=== PATIENT | male | born 1990 | race Caucasian/White ===

== ENCOUNTER 2016-12-03 19:53 | Emergency (ER) | payer MEDICAID ==
[2016-12-03 20:04] VITALS: BP 113/73
[2016-12-03] MEDS ORDERED: FAMOTIDINE 20 MG TABLET PO ONE (21:36)
[2016-12-03] MEDS ORDERED: DIPHENHYDRAMINE HCL 50 MG CAPSULE PO ONE (21:36)
[2016-12-03] MEDS ORDERED: DEXAMETHASONE SOD PHOS INJ 10 MG/1 ML VIAL IM ONE (21:36)
--- NOTE | 2016-12-03 21:42 | ER Document Report ---
ED Allergic Reaction - General Chief Complaint: Allergic Reaction Stated Complaint: POSSIBLE ALLERGIC REACTION Time Seen by Provider: 12/03/16 21:17 Mode of Arrival: Ambulatory Information source: Patient Notes: 26-year-old male presents to ED for allergic reaction to fire ant bites to bilateral feet about 1814. He states he had no known allergies. He states when he got bit while weed eating his yard he broke out in hives all over. He states he he took a shower after being bitten by the ants. He states he started breaking out in hives all over and he felt like his ears and throat were closing. He states he took 50 mg of Benadryl p.o. and his family states that he was not getting better so they brought him to the emergency room. By the time he got to the emergency room he states he started feeling better. He denies any shortness of breath or feeling like his throat was swollen. He is able to drink fluids. TRAVEL OUTSIDE OF THE [place] IN LAST 30 DAYS: No - HPI Onset: This evening Onset/Duration: Gradual, Better Quality of pain: No pain Severity: None Pain Level: Denies Other exposure: Ant bites Skin rash / itching: Diffuse, "Redness", "Hives" Swelling: Face, Throat, Hands, Feet Associated symptoms: None Similar symptoms previously: No Recently seen / treated by doctor: No - Related Data Allergies/Adverse Reactions: No Known Allergies Allergy (Unverified 12/03/16 20:00) Past Medical History - General Information source: Patient - Social History Smoking Status: Current Every Day Smoker - Pack per day Cigarette use (# per day): Yes - Pack per day Chew tobacco use (# tins/day): No Smoking Education Provided: Yes - Less than 2 minute Frequency of alcohol use: Social Drug Abuse: None Occupation: None Lives with: Spouse/Significant other, Friend Family History: DM, Malignancy. denies: Arthritis, CAD, COPD, CVA, Hyperlipidemia, Hypertension, Thyroid Disfunction Patient has suicidal ideation: No Patient has homicidal ideation: No - Medical History Medical History: Other - Past Medical History Cardiac Medical History: Reports: None Pulmonary Medical History: Reports: None EENT Medical History: Reports: None Neurological Medical History: Reports: None Endocrine Medical History: Reports: None Renal/ Medical History: Reports: None Malignancy Medical History: Reports None GI Medical History: Reports: None Musculoskeltal Medical History: Reports Hx Musculoskeletal Deformity - Bone spurs, Reports Hx Musculoskeletal Trauma - Skull fracture Skin Medical History: Reports None Psychiatric Medical History: Reports: None Traumatic Medical History: Reports: Hx Fractures - Skull fracture, Hx Traumatic Brain Injury Infectious Medical History: Reports: None Past Surgical History: Reports: Hx Orthopedic Surgery - Right leg due to bone spurs - Immunizations Immunizations up to date: Yes Review of Systems - Review of Systems Constitutional: No symptoms reported EENT: Difficulty swallowing - States he felt like his throat was swelling and he was having trouble swallowing earlier denies any symptoms now Cardiovascular: No symptoms reported Respiratory: No symptoms reported Gastrointestinal: No symptoms reported Genitourinary: No symptoms reported Male Genitourinary: No symptoms reported Musculoskeletal: No symptoms reported Skin: Other - Generalized hives with multiple ant bites to bilateral feet Hematologic/Lymphatic: No symptoms reported Neurological/Psychological: No symptoms reported -: Yes All other systems reviewed and negative Physical Exam - Vital signs Vitals: Temp Pulse Resp BP Pulse Ox 98.4 F 87 15 113/73 96 12/03/16 20:00 12/03/16 20:00 12/03/16 20:00 12/03/16 20:00 12/03/16 20:00 Interpretation: Normal - General General appearance: Appears well, Alert - HEENT Head: Normocephalic, Atraumatic Eyes: Normal Pupils: PERRL - Respiratory Respiratory status: No respiratory distress Chest status: Nontender Breath sounds: Normal Chest palpation: Normal - Cardiovascular Rhythm: Regular Heart sounds: Normal auscultation Murmur: No - Abdominal Inspection: Normal Distension: No distension Bowel sounds: Normal Tenderness: Nontender Organomegaly: No organomegaly - Back Back: Normal, Nontender - Extremities General upper extremity: Normal inspection, Nontender, Normal color, Normal ROM , Normal temperature General lower extremity: Normal inspection, Nontender, Normal color, Normal ROM , Normal temperature, Normal weight bearing. No: Mikhail's sign - Neurological Neuro grossly intact: Yes Cognition: Normal Orientation: AAOx4 Mark Coma Scale Eye Opening: Spontaneous Mark Coma Scale Verbal: Oriented [place] Coma Scale Motor: Obeys Commands [place] Coma Scale Total: 15 Speech: Normal Motor strength normal: LUE, RUE, LLE, RLE Sensory: Normal - Psychological Associated symptoms: Normal affect, Normal mood - Skin Skin Temperature: Warm Skin Moisture: Dry Skin Color: Normal Location of irregularity: Extremities - Hives Character of irregularity: Urticarial - Bilateral legs and feet and arms Irregularity with: Swelling - Bilateral feet Course - Re-evaluation Re-evalutation: 12/03/16 22:33 Patient was treated with Decadron 10 mg IM Benadryl 50 mg p.o. and Pepcid 20 mg p.o. Patient was discharged home with prescription for Pepcid and EpiPen. Patient given instructions to use the EpiPen only if he had feelings like his throat was swelling or any difficulty breathing after getting bit by ants or any other insect. Patient is to follow-up with primary doctor within the next 3 -4 days. Patient to return to the emergency room immediately if he has any return of difficulty swallowing or feeling like his throat is swelling. Patient states he was feeling much better when discharged. He was able to drink with no difficulty. - Vital Signs Vital signs: Temp Pulse Resp BP Pulse Ox 98.4 F 87 15 113/73 96 12/03/16 20:00 12/03/16 20:00 12/03/16 20:00 12/03/16 20:00 12/03/16 20:00 Discharge - Discharge Clinical Impression: allergic reaction to ant bites Condition: Stable Disposition: HOME, SELF-CARE Instructions: Family Physicians / Practices Additional Instructions: ACUTE ALLERGIC REACTION: Your symptoms are due to an allergic reaction. Allergy can cause hives, swelling of the hands, feet, and face, hoarseness, and difficulty swallowing or breathing. It may be due to exposure to medication, animal dander, foods, infection, or insect bites. Medication is a common cause, even when prior use of this same medication caused no problems. Acute treatment may include adrenalin and antihistamines. Usually, the specific allergic agent can't be identified unless repeated episodes occur. Home treatment includes the following: (1) Stop any suspicious medications. This will be discussed with you. (2) Oral antihistamines for the next four to five days. Example, diphenhydramine (Benadryl) every four hours. (3) You may also use cimetidine (Tagamet), ranitidine (Zantac), or famotidine ( Pepcid) every four hours if diphenhydramine is not controlling itching and hives. (4) Avoid aspirin until the hives completely disappear. (5) Avoid hot baths or showers until the hives are completely gone. Call the doctor if faintness, difficulty swallowing, tightness in the chest , or wheezing occurs. EPINEPHRINE: An injection of epinephrine (also called adrenalin) is used to treat allergic reactions, asthma, and some other medical conditions. It is a stimulant medication that consticts blood vessels, relaxes smooth muscles such as in the bronchioles of the lung, elevates blood pressure, and increases heart rate. It can temporarily make you feel very nervous and shakey, but it's affects last only a short time, about 15 to 30 minutes at most. STEROID MEDICATION INJECTION: You have been given an injection of medicine of the cortisone/steroid class. This medication is used to control inflammation or allergy. It is often continued as a pill for a short period of time, until the acute process subsides. There are usually no side effects from short-term use of cortisone-like medications. Some persons feel an increased sense of well-being and are not sleepy at bedtime. Long-term use of cortisone medications is best avoided, unless required for a severe condition. If your condition does not remit, or relapses after the course of corticosteroid medication, you should consult your physician. ACID-SUPPRESSING MEDICATION: You have a prescription for medicine which reduces the stomach's secretion of acid. Examples include Zantac, Tagament, and Pepcid. These drugs are often used to allow healing of ulcers or esophagitis. They may be needed to prevent recurrence of ulcers in some patients, or to prevent damage from acid reflux in the esophagus. Take all medication as prescribed, even after the pain is gone. Regular antacids may be added as needed if you have symptoms while taking this medicine. These medications sometimes are prescribed for allergic reactions because they have anti-histaminic effects and relieve the rash and itching of the reaction. There are usually no side effects from this medication. But, in rare cases and particularly in the elderly, serious problems can occur. Contact your doctor if there is fever, rash, hallucinations, confusion, or unusual bruising. Contact your doctor at once if you develop lightheadedness, black or bloody stool, or bloody vomitus. USE OF DIPHENHYDRAMINE: The use of diphenhydramine (Benadryl) has been recommended to control allergic symptoms. The 25 mg strength is available over- the-counter, as well as the elixir. This antihistamine is used for many symptoms. It's useful for itching, watering eyes and nose, allergic swelling, hives, and insect stings. The medication can be repeated four times daily. Age Elixir (12.5 mg/tsp) 25 mg pill 2-3 yr 1/2 tsp 4-8 yr 1 tsp 9-14 yr 2 tsp one tab adult 1-2 tabs Antihistamines may cause drowsiness, especially with the first dose. Do not operate machinery or drive while under the effects of the medication. Do not combine the medication with alcohol, or with any other medication without talking to your doctor. FOLLOW-UP CARE: If you have been referred to a physician for follow-up care, call the physician s office for an appointment as you were instructed or within the next two days. If you experience worsening or a significant change in your symptoms, notify the physician immediately or return to the Emergency Department at any time for re-evaluation. Prescriptions: Epinephrine [Epipen] 0.3 mg IJ ASDIR PRN #1 [id number].[email or web address] PRN Reason: Famotidine [Pepcid 20 mg Tablet] 20 mg PO BID #12 tablet Forms: Smoking Cessation Education Referrals: STEPHANI DREW DO [Primary Care Provider] - Follow up as needed
== END 2016-12-03 22:10 | disposition home or self-care (01) ==
LOC: ER 19:53
DX: T63.421A Toxic effect of venom of ants, accidental (unintentional), initial encounter (principal); L50.9 Urticaria, unspecified; R09.89 Other specified symptoms and signs involving the circulatory and respiratory systems; F17.210 Nicotine dependence, cigarettes, uncomplicated; Z71.6 Tobacco abuse counseling
CPT/HCPCS: 99283; 96372; J3490 ×2; J1100

== ENCOUNTER 2017-06-04 00:05 | Emergency (ER) | payer MEDICAID ==
[2017-06-04 00:22] VITALS: BP 135/86
[2017-06-04] MEDS ORDERED: IBUPROFEN 600 MG TABLET PO ONE (00:55)
[2017-06-04] MEDS ORDERED: PENICILLIN V POTASSIUM 500 MG TABLET PO ONE (00:55)
--- NOTE | 2017-06-04 01:01 | ER Document Report ---
ED Oral Problem - General Chief Complaint: Toothache Stated Complaint: TOOTHACHE Time Seen by Provider: 06/04/17 00:48 Mode of Arrival: Ambulatory Information source: Patient TRAVEL OUTSIDE OF THE [place] IN LAST 30 DAYS: No - HPI Patient complains to provider of: Toothache Onset: Other - 2 WEEKS Onset: Gradual Quality of pain: Achy Severity: Moderate Context: Fractured tooth Notes: Patient is here with complaints of right upper tooth pain. He states been present for the last few weeks. States that now he has pain when he pushes just under his right nostril. No swelling. No difficulty breathing or swallowing. No chest pain or shortness of breath. No abdominal pain. No nausea, vomiting, diarrhea. No rash. No injury. He states that he has not seen a dentist for this. Pain is worse with touching the area and eating, nothing seems to make it better. He denies any other complaints at this time. - Related Data Allergies/Adverse Reactions: No Known Allergies Allergy (Verified 06/04/17 00:17) Past Medical History - Social History Smoking Status: Unknown if Ever Smoked Family History: DM, Malignancy. denies: Arthritis, CAD, COPD, CVA, Hyperlipidemia, Hypertension, Thyroid Disfunction Patient has suicidal ideation: No Patient has homicidal ideation: No Renal/ Medical History: Denies: Hx Peritoneal Dialysis Musculoskeltal Medical History: Reports Hx Musculoskeletal Deformity - Bone spurs, Reports Hx Musculoskeletal Trauma - Skull fracture Traumatic Medical History: Reports: Hx Fractures - Skull fracture, Hx Traumatic Brain Injury Past Surgical History: Reports: Hx Orthopedic Surgery - Right leg due to bone spurs - Immunizations Immunizations up to date: Yes Review of Systems - Review of Systems -: Yes All other systems reviewed and negative Physical Exam - Vital signs Vitals: Temp Pulse Resp BP Pulse Ox 99.0 F 80 16 135/86 H 98 06/04/17 00:19 06/04/17 00:19 06/04/17 00:19 06/04/17 00:19 06/04/17 00:19 - Notes Notes: GENERAL: alert, cooperative, nontoxic, no distress. HEAD: normocephalic, atraumatic EYES: conjunctiva pink without discharge, no external redness or swelling. EARS: no external swelling, no external redness NOSE: atraumatic, no external swelling MOUTH/THROAT: mucous membranes moist and pink. Widespread dental decay. Fractured tooth noted to the right upper lateral incisor. No abscess or swelling noted to the gum. Mild tenderness to palpation just below the right nostril. There is no facial swelling or redness. No drainage. No trismus or drooling. NECK: soft, supple, full range of motion, no meningismus. CHEST: no distress, lungs clear and equal throughout. No wheezing, rales, rhonchi. CARDIAC: regular rate and rhythm, no murmur, normal capillary refill, normal pulses. BACK: full range of motion, no CVA tenderness. EXTREMITIES: full range of motion of all extremities. No redness, no swelling. NEURO: alert and oriented 3, no focal deficits, full range of motion of all extremities. PYSCH: appropriate mood, affect. Patient is cooperative. SKIN: pink, warm, dry, no rash. Course - Re-evaluation Re-evalutation: 06/04/17 00:58 Patient is nontoxic appearing with stable vitals. The patient is here with dental pain for the last few weeks that has progressively gotten worse. His pain just above her right lateral central incisor. There is no drainable abscess noted. No facial swelling. No trismus or drooling. Airway is patent. Patient likely has an early abscess forming. At this point there is nothing to drain. He will be discharged home with Deysi Spivey. He will be given a referral to dentist in the area. He is instructed to follow-up with a dentist at the next available appointment, sooner for increasing pain, high fever, swelling, difficulty breathing or swallowing, or for any further concerns. The patient is noted to have elevated blood pressure during today's emergency department visit. The patient was informed of this finding. The patient was instructed that this may be related to pre-hypertension and requires further evaluation with a primary care provider. The patient has no hypertensive symptoms at this time. The patient's emergency department workup and current diagnosis were explained to the patient and or family. Follow-up instructions were provided. Medications if prescribed were discussed. Instructions for when to return to the emergency department including specific worrisome symptoms were discussed with the patient and/or family. - Vital Signs Vital signs: Temp Pulse Resp BP Pulse Ox 99.0 F 80 16 135/86 H 98 06/04/17 00:19 06/04/17 00:19 06/04/17 00:19 06/04/17 00:19 06/04/17 00:19 Discharge - Discharge Clinical Impression: Pain, dental, Dental caries Condition: Stable Disposition: HOME, SELF-CARE Instructions: [facility], Penicillin V K ([facility]), Toothache ([facility]), Dentist Additional Instructions: Take medications as prescribed. Follow-up with a dentist at the next available appointment. Follow-up sooner for increasing pain, high fever, significant swelling, difficulty breathing or swallowing, or for any further concerns. Your blood pressure was elevated during today's visit. Have this rechecked with your doctor. Prescriptions: Diclofenac Sodium [Voltaren 50 Mg Tablet.] 50 mg PO BID #20 tablet. Penicillin V Potassium [Penicillin Vk 500 mg Tablet] 500 mg PO BID #20 tablet Forms: Elevated Blood Pressure, Smoking Cessation Education Referrals: BRIELLE CANCINO DPM [Primary Care Provider] - Follow up as needed
== END 2017-06-04 01:15 | disposition home or self-care (01) ==
LOC: ER 00:05
DX: K02.9 Dental caries, unspecified (principal); K08.89 Other specified disorders of teeth and supporting structures; R03.0 Elevated blood-pressure reading, without diagnosis of hypertension
CPT/HCPCS: 99282; J3490 ×2

== ENCOUNTER 2017-06-04 22:29 | Emergency (ER) | payer MEDICAID | END 2017-06-04 23:06 | disposition left against medical advice (07) | LOC: ER 22:29 | DX: Z53.21 Procedure and treatment not carried out due to patient leaving prior to being seen by health care provider (principal) ==

== ENCOUNTER 2018-06-25 16:33 | Emergency (ER) | payer SELFPAY ==
[2018-06-25 16:45] VITALS: BP 119/76
--- NOTE | 2018-06-25 16:45 | ER Document Report ---
HPI - HPI Time Seen by Provider: 06/25/18 16:44 Pain Level: 2 Notes: 28 yr male presents for dental pain that started 2 days ago after he broke his tooth. Denies any other area of injury. Pain is 8 out of 10, throbbing achy. Patient has a history of dental issues in the past has not been seen by a dentist. He decreased eating but drinking without issues. Patient smokes pack a day for the last 10 years. Denies fevers, chills, chest pain,palpitations, shortness of breath, dyspnea, nausea, vomiting, diarrhea, abdominal pain, hematuria,blurred vision, double vision, loss of vision, speech changes, LH, dizziness, syncope, headaches, wheezing, ST, URI, neck pain, weakness or rash Past Medical History - General Information source: Patient - Social History Smoking Status: Current Every Day Smoker Family History: DM, Malignancy. denies: Arthritis, CAD, COPD, CVA, Hyperlipidemia, Hypertension, Thyroid Disfunction Renal/ Medical History: Denies: Hx Peritoneal Dialysis Musculoskeletal Medical History: Reports Hx Musculoskeletal Deformity - Bone spurs, Reports Hx Musculoskeletal Trauma - Skull fracture Traumatic Medical History: Reports: Hx Fractures - Skull fracture, Hx Traumatic Brain Injury Past Surgical History: Reports: Hx Orthopedic Surgery - Right leg due to bone spurs - Immunizations Immunizations up to date: Yes Vertical Provider Document - CONSTITUTIONAL Agree With Documented VS: Yes Notes: PHYSICAL EXAMINATION: GENERAL: Well-appearing, well-nourished and in no acute distress. HEAD: Atraumatic, normocephalic. EYES: Pupils equal round and reactive to light, extraocular movements intact, sclera anicteric, conjunctiva are normal. ENT: Nares patent, oropharynx clear without exudates. Moist mucous membranes. #6 gingiva with swelling, erythema and induration. No drainage or open wounds. No fluctuance. No facial swelling. Poor oral dentition, right upper jaw with ext ensive dental caries, no definite swelling or effusion. NECK: Normal range of motion, supple without lymphadenopathy LUNGS: Breath sounds clear to auscultation bilaterally and equal. No wheezes rales or rhonchi. HEART: Regular rate and rhythm without murmurs ABDOMEN: Soft, nontender, nondistended abdomen. No guarding, no rebound. No masses appreciated. Musculoskeletal: Normal range of motion, no pitting or edema. No cyanosis. NEUROLOGICAL: Cranial nerves grossly intact. Normal speech, normal gait. Normal sensory, motor exams PSYCH: Normal mood, normal affect. SKIN: Warm, Dry, normal turgor, no rashes or lesions noted. - INFECTION CONTROL TRAVEL OUTSIDE OF THE [place] IN LAST 30 DAYS: No Course - Re-evaluation Re-evalutation: 06/25/18 17:06 Presentation is most consistent with likely an infected tooth. Airway is patent. Vitals within normal limits. Patient is able swallow without any difficulty. There is no significant facial swelling. No evidence of Duane angina, apical abscess, or airway obstruction. Patient will be started on antibiotics. I've instructed to follow-up with dentistry as earliest ability for definitive management. At this time will discharge with return precautions and follow-up recommendations. Verbal discharge instructions given a the bedside and opportunity for questions given. Medication warnings reviewed. Patient is in agreement with this plan and has verbalized understanding of return precautions and the need for primary care follow-up in the next 24-72 hours. - Vital Signs Vital signs: Temp Pulse Resp BP Pulse Ox 98.2 F 73 18 119/76 97 06/25/18 16:41 06/25/18 16:41 06/25/18 16:41 06/25/18 16:41 06/25/18 16:41 Discharge - Discharge Clinical Impression: Dental caries Condition: Stable Instructions: Toothache (REPLACED BY [facility]), Clindamycin (REPLACED BY [facility]), [facility], Dentist Additional Instructions: Dental Infection or Abscess You have an infection, perhaps an abscess (pus formation) of the gum around one of your teeth, which is probably decayed. If there is an abscess, it may drain on its own or it may need to be opened or lanced. Severe swelling or drainage around a tooth usually means a deep dental abscess which usually requires evaluation and treatment by a dentist or oral surgeon. Antibiotics may be prescribed while awaiting dental treatment. If you develop high fever with chills, worsening pain, or increasing swelling in the area, see a dentist or oral surgeon immediately or return to the Emergency Department immediately. Return immediately for any new or worsening symptoms. Follow up with primary care provider, call tomorrow to make followup appointment. Prescriptions: Clindamycin HCl 300 mg PO Q6H #28 capsule Forms: Return to Work Referrals: ASHANTI DA SILVA MD [COMMUNITY BASED STAFF] - Follow up in 3-5 days
[2018-06-25] MEDS ORDERED: KETOROLAC TROMETHAMINE 60 MG/2 ML SDV IM ONE (17:05)
== END 2018-06-25 17:25 | disposition home or self-care (01) ==
LOC: ER 16:33
DX: K02.9 Dental caries, unspecified (principal); F17.200 Nicotine dependence, unspecified, uncomplicated
CPT/HCPCS: 99282; 96372; J1885